=== PATIENT | male | born 1945 | race Caucasian/White ===

== ENCOUNTER 2017-10-02 13:56 | Emergency (ER) | payer MEDICARE, BC ==
[2017-10-02 14:11] VITALS: BP 163/112; PULSE 81; RESP 18; TEMP 97.6
[2017-10-02] MEDS ORDERED: DIPH,PERTUS(ACELL)TETVAC-LF 0.5 ML VIAL IM ONE (14:17)
[2017-10-02] MEDS ORDERED: TOPICAL SKIN ADHESIVE 1 EACH AMP TOPICAL ONE (14:18)
--- NOTE | 2017-10-02 14:22 | ED ---
General Adult HPI - General Chief complaint: Wound/Laceration Stated complaint: Finger Lac Source: patient Mode of arrival: ambulatory Limitations: no limitations - History of Present Illness Initial comments: Dictation was produced using [employer] dictation software. please excuse any grammatical, word or spelling errors. Chief Complaint: 71-year-old male with past medical history diabetes, hyperlipidemia, hypertension presents with finger laceration. History of Present Illness: Since that at approximately 1 PM he was cutting a green pepper when he cut his finger with a knife. Left causes him to bleed. He states that he cut his third digit on his left hand. Patient states that there was profuse bleeding that didn't stop immediately. Because of the bleeding he decided to come to the emergency department. Patient reports that his tetanus is not updated. States an echo was clean. The ROS documented in this emergency department record has been reviewed and confirmed by me. Those systems with pertinent positive or negative responses have been documented in the HPI. All other systems are other negative and/or noncontributory. - Related Data Home Medications Medication Instructions Recorded Confirmed Simvastatin [Zocor] 20 mg PO HS 10/10/14 12/20/15 Allergies Allergy/AdvReac Type Severity Reaction Status Date / Time No Known Allergies Allergy Verified 10/02/17 14:32 Review of Systems ROS Statement: Those systems with pertinent positive or pertinent negative responses have been documented in the HPI. ROS Other: All systems not noted in ROS Statement are negative. Past Medical History Past Medical History: Diabetes Mellitus, Hyperlipidemia, Hypertension Additional Past Medical History / Comment(s): anemia, doesn't take bp rx History of Any Multi-Drug Resistant Organisms: None Reported Past Surgical History: Hernia Repair, Orthopedic Surgery Past Psychological History: No Psychological Hx Reported Smoking Status: Never smoker Past Alcohol Use History: None Reported Past Drug Use History: None Reported General Exam - General Exam Comments Initial Comments: PHYSICAL EXAM: General Impression: Alert and oriented x3, not in acute distress HEENT: Normocephalic atraumatic, extra-ocular movements intact, pupils equal and reactive to light bilaterally, mucous membranes moist. Cardiovascular: Heart regular rate and rhythm, S1&S2 audible, no murmurs, rubs or gallops Chest: Lungs clear to auscultation bilaterally, no rhonchi, no wheeze, no rales Abdomen: Bowel sounds present, abdomen soft, non-tender, non-distended, no organomegaly Musculoskeletal: Pulses present and equal in all extremities, no peripheral edema Motor: Power 5/5 bilaterally, no focal deficits noted Neurological: CN II-XII grossly intact, no focal motor or sensory deficits noted Skin: One centimeter superficial laceration to the left third digit over the lateral surface. Psych: Normal affect and mood Limitations: no limitations Course Vital Signs 10/02/17 14:05 Temperature 97.6 F Pulse Rate 81 Respiratory 18 Rate Blood Pressure 163/112 O2 Sat by Pulse 94 L Oximetry Medical Decision Making - Medical Decision Making ED course: 71-year-old male presents with laceration to the third digit of his finger. Vital signs upon arrival are within acceptable limits. Physical examination positive for very superficial laceration to his third digit on his left hand. No indications for sutures given that there is no exposed underlying tissue. Nailbed is intact. Capillary refill is then normal limits. Tetanus is updated. Wound was irrigated using tap water. Laceration is superficial and approximates well without any added tension. Light Dermabond was applied keep the wound together Patient told to keep close eye on his wound to make sure it is healing appropriately. He is told to seek medical attention should he develop any worsening pain, erythema or discharge. Patient is understandable and agreeable. Disposition Clinical Impression: Laceration Disposition: HOME SELF-CARE Condition: Good Instructions: Laceration (ED) Is patient prescribed a controlled substance at d/c from ED?: No Referrals: Pancho Mccabe MD [Primary Care Provider] - 1-2 days Decision Time: 14:42
== END 2017-10-02 14:49 | disposition home or self-care (01) ==
LOC: EC 13:56
DX: S61.213A Laceration without foreign body of left middle finger without damage to nail, initial encounter (principal); E78.5 Hyperlipidemia, unspecified; I10 Essential (primary) hypertension; Z79.899 Other long term (current) drug therapy; Z23 Encounter for immunization; W26.0XXA Contact with knife, initial encounter; Y93.89 Activity, other specified
CPT/HCPCS: 12001; 90471; 90715; 99282